=== PATIENT | male | born 1955 | race Caucasian/White ===

== ENCOUNTER 2018-03-06 14:09 | Emergency (ER) | payer MEDICARE ==
[~2018-03-06] VITALS: Ht 182.9 cm; Wt 102.9 kg
[2018-03-06] MEDS ORDERED: LIDOCAINE GEL 2%, 5ML TP ONE (14:30)
[2018-03-06 14:41] LABS: BASOPHILS # (AUTO) 0.01 x10^3/uL (0-0.1); BASOPHILS % (AUTO) 0 % (0-1); EOSINOPHILS # (AUTO) 0.03 x10^3/uL (0-0.4); EOSINOPHILS % (AUTO) 0 % (1-7); LYMPHOCYTES # (AUTO) 1.01 x10^3/uL (1-3.4); LYMPHOCYTES % (AUTO) 13 % (22-44); MD NO; MEAN CORPUSCULAR HEMOGLOBIN 32.5 pg (27.5-34.5); MEAN CORPUSCULAR HGB CONC 33.8 g/dL (33.2-36.2); MEAN PLATELET VOLUME 10.5 fL (7.4-10.4); MONOCYTES # (AUTO) 0.67 x10^3/uL (0.2-0.8); MONOCYTES % (AUTO) 9 % (2-9); NEUTROPHILS # (AUTO) 5.97 x10^3/uL (1.8-6.8); NEUTROPHILS % (AUTO) 78 % (42-75); PLATELET COUNT 178 x10^3/uL (130-400); RED BLOOD COUNT 4.76 x10^6/uL (4.38-5.82); RED CELL DISTRIBUTION WIDTH 13.1 % (9.4-14.8)
[2018-03-06 14:52] LABS: ANION GAP 7 mmol/L (5-15); CALCIUM 8.5 mg/dL (8.5-10.1); CHLORIDE 108 mmol/L (98-107); CREATININE 0.89 mg/dL (0.7-1.3)
[2018-03-06 15:50] LABS: MICROSCOPIC INDICATED
[2018-03-06 16:05] LABS: CULTURE INDICATED? NO
[2018-03-06 16:19] VITALS: BP 134/90
== END 2018-03-06 16:32 | disposition home or self-care (01) ==
LOC: ED 15:17
DX: N40.1 Benign prostatic hyperplasia with lower urinary tract symptoms (principal); R33.8 Other retention of urine; R10.9 Unspecified abdominal pain; R14.0 Abdominal distension (gaseous); E78.5 Hyperlipidemia, unspecified
CPT/HCPCS: 36415; 51702; 80048; 81001; 85025; 99285

== ENCOUNTER 2018-03-12 11:07 | Emergency (ER) | payer MEDICARE ==
[~2018-03-12] VITALS: Ht 182.9 cm; Wt 102.2 kg
[2018-03-12 11:08] VITALS: BP 145/97
== END 2018-03-12 12:42 | disposition home or self-care (01) ==
LOC: ED 11:45
DX: R33.9 Retention of urine, unspecified (principal); E78.5 Hyperlipidemia, unspecified; G20 Parkinson's disease; N40.1 Benign prostatic hyperplasia with lower urinary tract symptoms
CPT/HCPCS: 51702; 99284

== ENCOUNTER 2018-08-28 10:49 | Emergency (ER) | payer MEDICARE ==
[~2018-08-28] VITALS: Ht 182.9 cm; Wt 101.4 kg
[2018-08-28 10:54] VITALS: BP 132/87
[2018-08-28] MEDS ORDERED: ROPI8TAB3 PO (11:29)
[2018-08-28] MEDS ORDERED: ATOR10TA9 PO (11:29)
[2018-08-28] MEDS ORDERED: RASA1TAB2 PO (11:29)
[2018-08-28] MEDS ORDERED: TAMS0.4C2 PO (11:30)
[2018-08-28] MEDS ORDERED: ESCI5TAB PO (11:30)
[2018-08-28] MEDS ORDERED: ASPI-515 PO (11:31)
== END 2018-08-28 13:22 | disposition home or self-care (01) ==
LOC: ED 12:59
DX: S62.396A Other fracture of fifth metacarpal bone, right hand, initial encounter for closed fracture (principal); E78.5 Hyperlipidemia, unspecified; S22.41XA Multiple fractures of ribs, right side, initial encounter for closed fracture; W01.0XXA Fall on same level from slipping, tripping and stumbling without subsequent striking against object, initial encounter; Y93.89 Activity, other specified; Y99.8 Other external cause status; Y92.410 Unspecified street and highway as the place of occurrence of the external cause
CPT/HCPCS: 29125; 99284